=== PATIENT | male | born 1970 | race Caucasian/White ===

== ENCOUNTER 2023-11-19 09:11 | Day surgery (SDC) | payer OTHER ==
[~2023-11-19] VITALS: Ht 177.8 cm; Wt 77.1 kg
[2023-11-19] MEDS ORDERED: fentaNYL citrate 0.05 MG/ML VIAL ONE (10:06)
[2023-11-19] MEDS ORDERED: MIDAZOLAM 5 MG/5 ML VIAL ONE (10:06)
[2023-11-19] MEDS: fentaNYL citrate 0.05 MG/ML VIAL IVP ONE (10:45)
== END 2023-11-19 11:52 | disposition home or self-care (01) ==
LOC: MDS 09:11 → MMU 09:11 → MDS 11:52
PROVIDERS: ATTEND Internal Medicine Gastroenterology
DX: Z09 Encounter for follow-up examination after completed treatment for conditions other than malignant neoplasm (principal); D12.2 Benign neoplasm of ascending colon; Z80.9 Family history of malignant neoplasm, unspecified; Z98.890 Other specified postprocedural states
CPT/HCPCS: 45380; 82948; J3010; J2250